=== PATIENT | male | born 1990 | race American Indian/Alaskan Native ===

== ENCOUNTER 2017-05-17 07:18 | Emergency (ER) | payer OTHER ==
[2017-05-17] MEDS ORDERED: Sodium Chloride 0.9% 1,000 ML IV STA (07:34)
[2017-05-17 07:45] VITALS: BMI 28.7
[2017-05-17 07:56] VITALS: RESP 18
[2017-05-17 08:37] LABS: BASO # 0.02 K/mm3 (0.0-2.0); BASO % 0.4 % (0.0-3.0); EOS # 0.4 (0.0-0.7); EOS % 7.6 % (1.5-5.0); GRAN # 3.15 (1.4-6.5); GRAN % 55.5 % (50.0-68.0); HEMOGLOBIN 13.9 g/dL (14.0-18.0); LYMPH # 1.7 (1.2-3.4); LYMPH % 30.7 % (22.0-35.0); MEAN CELL VOLUME 84.8 fl (80.0-105.0); MEAN CORPUSCULAR HEMOGLOBIN 28.1 pg (25.0-35.0); MEAN CORPUSCULAR HGB CONC 33.2 g/dl (31.0-37.0); MEAN PLATELET VOLUME 10.6 fl (7.0-11.0); MONO # 0.3 (0.1-0.6); MONO % 5.8 % (1.0-6.0); RBC 4.94 10^6/uL (3.5-6.1); WHITE BLOOD COUNT 5.7 10^3/ul (4.5-11.0)
[2017-05-17 08:39] LABS: ALB/GLOB RATIO 1.1 (1.1-1.8); ALBUMIN 3.9 g/dL (3.0-4.8); ALT/SGPT 67 U/L (7-56); AST/SGOT 69 U/L (17-59); BLOOD UREA NITROGEN 15 mg/dL (7-21); CALCIUM 9.5 mg/dL (8.4-10.5); GFR AFRICAN-AMERICAN > 60; GFR NON-AFRICAN AMERICAN > 60; LIPASE 62 U/L (23-300)
[2017-05-17 08:47] LABS: INR 1.05 (0.93-1.08); PARTIAL THROMBOPLASTIN TIME 31.6 Seconds (25.1-36.5); PROTHROMBIN TIME 12.1 SECONDS (9.4-12.5)
--- NOTE | 2017-05-17 09:50 | CT ---
PROCEDURE: CT Abdomen and Pelvis without intravenous contrast HISTORY: kidney stone protoocl COMPARISON: None. TECHNIQUE: Without contrast. Contrast Dose: Radiation dose: Total exam DLP = Total exam DLP = 487 mGy-cm. This CT exam was performed using one or more of the following dose reduction techniques: Automated exposure control, adjustment of the mA and/or kV according to patient size, and/or use of iterative reconstruction technique. FINDINGS: LOWER THORAX: Unremarkable. LIVER: Unremarkable. No gross lesion or ductal dilatation. GALLBLADDER AND BILE DUCTS: Unremarkable. PANCREAS: Unremarkable. No gross lesion or ductal dilatation. SPLEEN: Unremarkable. ADRENALS: Unremarkable. No mass. KIDNEYS AND URETERS: Unremarkable. No hydronephrosis. No solid mass. VASCULATURE: Unremarkable. No aortic aneurysm. BOWEL: Unremarkable. No obstruction. No gross mural thickening. APPENDIX: Unremarkable. Normal appendix. PERITONEUM: Unremarkable. No free fluid. No free air. LYMPH NODES: Unremarkable. No enlarged lymph nodes. BLADDER: Unremarkable. REPRODUCTIVE: Unremarkable. BONES: No acute fracture. OTHER FINDINGS: None. IMPRESSION: No acute findings. No evidence of nephrolithiasis
[2017-05-17 09:51] LABS: PH,URINE 7.5 (4.7-8.0); URINE BILIRUBIN NEGATIVE (NEGATIVE); URINE BLOOD NEGATIVE (NEGATIVE); URINE GLUCOSE (UA) NEGATIVE (NEGATIVE); URINE LEUKOCYTE ESTERASE NEGATIVE Leu/uL (NEGATIVE); URINE PROTEIN NEGATIVE mg/dL (<30 mg/dL); URINE UROBILINOGEN 0.2 E.U./dL (<1 E.U./dL)
[2017-05-17 09:54] LABS: URINE APPEARANCE CLEAR (CLEAR); URINE COLOR LIGHT YELLOW (YELLOW)
--- NOTE | 2017-05-17 11:34 | ED PDOC ---
Arrival/HPI - General Chief Complaint: Male Genitourinary Time Seen by Provider: 05/17/17 07:27 Historian: Patient - History of Present Illness Narrative History of Present Illness (Text): 05/17/17 11:30 A 26 year old male, whose past medical history includes left sided ACL repair, presents to the emergency department complaining of right sided testicular pain for 2 days. Patient also reports right sided abdominal pain 2 days ago which resolved after 2-3 hours. He notes the pain returned today but now it is localized in the right paralumbar spinal region. Patient notes mild nausea but denies any recent trauma, fever, chills, vomiting, chest pain, shortness of breath or any other complaints. Patient reports having unprotected sex only with his . Time/Duration: Other (2 days) Context: Home Past Medical History - Provider Review Nursing Documentation Reviewed: Yes - Infectious Disease Hx of Infectious Diseases: None - Psychiatric Hx Substance Use: No - Surgical History Other/Comment: L knee acl - Anesthesia Hx Anesthesia Reactions: No Hx Malignant Hyperthermia: No Family/Social History - Physician Review Nursing Documentation Reviewed: Yes Family/Social History: No Known Family HX, Other (Kidney stones -- Aunt) Smoking Status: Current Some Days Smoker Hx Alcohol Use: No Hx Substance Use: No Allergies/Home Meds Allergies/Adverse Reactions: Allergies seafood Allergy (Uncoded 05/17/17 07:32) ANAPHYLAXIS Review of Systems - Physician Review All systems were reviewed & negative as marked: Yes - Review of Systems Constitutional: absent: Fevers, Night Sweats Eyes: Normal ENT: Normal Respiratory: absent: SOB Cardiovascular: absent: Chest Pain Gastrointestinal: Abdominal Pain (2 days ago which resolved after 2-3 hours), Nausea. absent: Vomiting Genitourinary Male: Other (right sided testicular pain ) Musculoskeletal: Back Pain (right mid back pain x today) Skin: Normal Neurological: Normal Endocrine: Normal Hemo/Lymphatic: Normal Psychiatric: Normal Physical Exam Vital Signs Reviewed: Yes Vital Signs Temp Pulse Resp BP Pulse Ox 05/17/17 13:00 98.5 F 78 18 139/82 98 05/17/17 11:47 76 18 138/79 98 05/17/17 07:39 98.0 F 77 18 150/78 99 Temperature: Afebrile Blood Pressure: Normal Pulse: Regular Respiratory Rate: Normal Appearance: Positive for: Well-Appearing, Non-Toxic, Comfortable Pain Distress: None Mental Status: Positive for: Alert and Oriented X 3 - Systems Exam Head: Present: Atraumatic, Normocephalic Pupils: Present: PERRL Extroacular Muscles: Present: EOMI Conjunctiva: Present: Normal Mouth: Present: Moist Mucous Membranes Neck: Present: Normal Range of Motion Respiratory/Chest: Present: Clear to Auscultation, Good Air Exchange. No: Respiratory Distress, Accessory Muscle Use Cardiovascular: Present: Regular Rate and Rhythm, Normal S1, S2. No: Murmurs Abdomen: No: Tenderness, Distention, Peritoneal Signs Genitourinary Male: Present: Normal External Genitalia. No: Penile Discharge, Testicle Tenderness (no direct tenderness), Penile Swelling, Masses, Erythema, Testicle Swelling Back: Present: Paraspinal Tenderness (Rigth paralumbar tenderness) Upper Extremity: Present: Normal Inspection. No: Cyanosis, Edema Lower Extremity: Present: Normal Inspection. No: Edema Neurological: Present: GCS=15, CN II-XII Intact, Speech Normal Skin: Present: Warm, Dry, Normal Color. No: Rashes Psychiatric: Present: Alert, Oriented x 3, Normal Insight, Normal Concentration Medical Decision Making ED Course and Treatment: 05/17/17 11:30 Impression: A 26 year old male with right sided testicular pain. Patient notes nausea and right paralumbar spinal tenderness. Plan: -- Abdomen and pelvis CT -- Testes ultrasound -- Labs -- Urine culture and Urinalysis -- Toradol and IV fluids -- Reassess and disposition Progress Notes: Report Date : 05/17/2017 09:48:57 PROCEDURE: CT Abdomen and Pelvis without intravenous contrast Dictator : Ministerio Guerra MD IMPRESSION: No acute findings. No evidence of nephrolithiasis Report Date : 05/17/2017 12:34:43 Procedure: Testes ultrasound Dictator : Aruna Mcdonough MD IMPRESSION: No evidence for testicular mass, torsion or epididymo-orchitis. Bilateral small hydroceles. 10 mm simple cyst in the head of the right epididymis. On re-evaluation, patient feels better and is in no acute distress. I have discussed the results and plan with the patient, who expresses understanding. Patient in agreement with plan to be discharged home. Patient is stable for discharge. Patient was instructed to follow up with physician or return if symptoms worsen or new concerning symptoms arise. - Lab Interpretations Microbiology Results: Microbiology Results 05/17/17 08:40 Urine,Clean Catch Urine Culture - Final No Growth (<1,000 CFU/ML) Lab Results: 05/17/17 08:00 05/17/17 08:00 Lab Results 05/17/17 08:40: Urine Color Light yellow, Urine Appearance Clear, Urine pH 7.5, Ur Specific [place] 1.010, Urine Protein Negative, Urine Glucose (UA) Negative, Urine Ketones Negative, Urine Blood Negative, Urine Nitrate Negative, Urine Bilirubin Negative, Urine Urobilinogen 0.2, Ur Leukocyte Esterase Negative 05/17/17 08:00: Sodium 141, Potassium 3.8, Chloride 104, Carbon Dioxide 27, Anion Gap 14, BUN 15, Creatinine 1.0, Est GFR ( Amer) > 60, Est GFR (Non- Af Amer) > 60, Random Glucose 90, Calcium 9.5, Total Bilirubin 0.5, AST 69 H, ALT 67 H, Alkaline Phosphatase 62, Total Protein 7.4, Albumin 3.9, Globulin 3.5 , Albumin/Globulin Ratio 1.1, Lipase 62 05/17/17 08:00: PT 12.1, INR 1.05, APTT 31.6 05/17/17 08:00: WBC 5.7, RBC 4.94, Hgb 13.9 L, Hct 41.9 L, MCV 84.8, MCH 28.1, MCHC 33.2, RDW 12.0, Plt Count 292, MPV 10.6, Gran % 55.5, Lymph % (Auto) 30.7, [place] % (Auto) 5.8, Eos % (Auto) 7.6 H, Baso % (Auto) 0.4, Gran # 3.15, Lymph # ( Auto) 1.7, [place] # (Auto) 0.3, Eos # (Auto) 0.4, Baso # (Auto) 0.02 I have reviewed the lab results: Yes - RAD Interpretation Radiology Orders: 05/17/17 09:11 ABDOMEN & PELVIS [ABD & PELVIS W/O PO OR IV CONT] [CT] Stat 05/17/17 11:33 TESTES DUPLEX COMPLETE [US] Stat - Medication Orders Current Medication Orders: Discontinued Medications Sodium Chloride (Sodium Chloride 0.9%) 1,000 mls @ 999 mls/hr IV .Q1H1M STA Stop: 05/17/17 08:34 Last Admin: 05/17/17 08:12 Dose: 999 mls/hr eMAR Start Stop Document 05/17/17 08:12 SRE (Rec: 05/17/17 08:13 SRE [id number]) Intravenous Solution Start Date 05/17/17 Start Time 08:00 End Date 05/17/17 End time 09:00 Total Infusion Time 60 Ketorolac Tromethamine (Toradol) 30 mg IVP STAT STA Stop: 05/17/17 07:34 Last Admin: 05/17/17 08:13 Dose: 30 mg MAR Pain Assessment Document 05/17/17 08:13 SRE (Rec: 05/17/17 08:14 SRE [id number]) Pain Reassessment Is this a pain reassessment? Yes Sleep Is patient sleeping during reassessment? No Presence of Pain Presence of Pain Yes Pain Scale Used Pain Scale Used Numeric Location Left, Right or Bilateral Right Pain Location Body Site Back Description Description Intermittent IVP Administration Document 05/17/17 08:13 SRE (Rec: 05/17/17 08:14 SRE [id number]) Charges for Administration # of IVP Administrations 1 - Scribe Statement The provider has reviewed the documentation as recorded by the Sarmad Jeronimo Provider Scribe Attestation: All medical record entries made by the Scribe were at my direction and personally dictated by me. I have reviewed the chart and agree that the record accurately reflects my personal performance of the history, physical exam, medical decision making, and the department course for this patient. I have also personally directed, reviewed, and agree with the discharge instructions and disposition. Disposition/Present on Arrival - Present on Arrival Any Indicators Present on Arrival: No History of DVT/PE: No History of Uncontrolled Diabetes: No Urinary Catheter: No History of Decub. Ulcer: No History Surgical Site Infection Following: None - Disposition Have Diagnosis and Disposition been Completed?: Yes Diagnosis: Abdominal pain, Testicular pain, right Disposition: HOME/ ROUTINE Disposition Time: 13:35 Patient Plan: Discharge Condition: IMPROVED Discharge Instructions (ExitCare): Kidney Stones (DC) Print Language: WELSH Additional Instructions: If symptoms recur take medicine as directed . Follow up with urologist if symptoms recur. Prescriptions: Ibuprofen [Motrin Tab] 600 mg PO Q6 PRN #40 tab PRN Reason: Pain, Moderate (4-7) Tamsulosin [Flomax] 0.4 mg PO DAILY PRN #14 cap PRN Reason: Pain, Moderate (4-7) Referrals: Vincent Snow MD [Staff Provider] - Follow up with primary PCP,NO [Primary Care Provider] - Follow up with primary Forms: [employer] (K[place]z), WORK NOTE
[2017-05-17 11:47] VITALS: O2SAT 98
--- NOTE | 2017-05-17 12:36 | US ---
HISTORY: rt sided testicular ultrasound TECHNIQUE: Realtime sonography through the scrotum with color and doppler flow. COMPARISON: None Available. FINDINGS: RIGHT TESTICLE: Measures 4.3 x 2.4 x 3.2 cm. Normal echotexture and flow. RIGHT EPIDIDYMIS: There is a 10 mm simple cyst in the head of the epididymis. Normal with normal flow. LEFT TESTICLE: Measures 3.7 x 2.2 x 3.1 cm. Normal echotexture and flow. LEFT EPIDIDYMIS: Epididymal head measures 1.0 x 1.1 x 0.9 cm. Grossly unremarkable appearance with normal flow. HYDROCELE: None. VARICOCELE: There are bilateral small hydroceles. OTHER FINDINGS: None. IMPRESSION: No evidence for testicular mass, torsion or epididymo-orchitis. Bilateral small hydroceles. 10 mm simple cyst in the head of the right epididymis.
[2017-05-17 13:41] VITALS: BP 139/82; PULSE 78; TEMP 98.5
== END 2017-05-17 13:41 | disposition home or self-care (01) ==
LOC: MERGE 07:18 → ED 07:18
DX: N50.811 Right testicular pain (principal); R10.9 Unspecified abdominal pain
CPT/HCPCS: 74176; 80053; 81003; 83690; 85025; 85610; 85730; 87086; 93975; 96361; 96374; 99284; J1885; J7040